=== PATIENT | male | born 1985 | race Caucasian/White ===

== ENCOUNTER 2017-07-08 04:35 | Emergency (ER) | payer OTHER ==
[2017-07-08] MEDS ORDERED: IBUPROFEN 600 MG TAB PO ONE (05:03)
--- NOTE | 2017-07-08 05:22 | EDPHY ---
H & P Stated Complaint: R foot infection, swelling Time Seen by Provider: 07/08/17 04:46 HPI/ROS: HPI The patient presents with right foot redness and swelling which has been present for the last 1 day. He went skiing 2 days ago and got a blister on his medial heel. He then noticed increasing redness and swelling of his heel which has gotten progressively worse. This is associated with a throbbing pain which is moderate in severity. He felt subjective chills though did not have a fever. He has not had any nausea or vomiting. He has no prior history of skin or soft tissue infection. REVIEW OF SYSTEMS Constitutional: No fever, no chills. Eyes: No discharge. ENT: No sore throat. Cardiovascular: No chest pain, no palpitations. Respiratory: No cough, no shortness of breath. Gastrointestinal: No abdominal pain, no vomiting. Genitourinary: No hematuria. Musculoskeletal: No back pain. Skin: No rashes. Neurological: No headache. PMHx: Healthy Soc Hx: Lives locally PHYSICAL General Appearance: Alert, no distress Eyes: Pupils equal and round no pallor or injection ENT, Mouth: Mucous membranes moist Respiratory: Breathing comfortably Neurological: A&O, moves all extremities Skin: Warm and dry, no rashes Musculoskeletal: Neck is supple non tender Extremities: Right medial heel with 2 cm open bullae with surrounding erythema , warmth, tenderness with no areas of fluctuance, there is lymphangitic streaking which extends to the mid thigh. Psychiatric: Patient is oriented X 3, there is no agitation Source: Patient Exam Limitations: No limitations - Personal History Current Tetanus/Diphtheria Vaccine: Unsure Current Tetanus Diphtheria and Acellular Pertussis (TDAP): Unsure - Medical/Surgical History Hx Asthma: No Hx Chronic Respiratory Disease: No Hx Diabetes: No Hx Cardiac Disease: No Hx Renal Disease: No Hx Cirrhosis: No Hx Alcoholism: No Hx HIV/AIDS: No Hx Splenectomy or Spleen Trauma: No Other PMH: denies - Social History Smoking Status: Never smoked Constitutional: Initial Vital Signs Temperature (C) 36.9 C 07/08/17 04:37 Heart Rate 95 07/08/17 04:37 Respiratory Rate 16 07/08/17 04:37 Blood Pressure 131/81 H 07/08/17 04:37 O2 Sat (%) 94 07/08/17 04:37 O2 Delivery Mode Room Air Allergies/Adverse Reactions: No Known Allergies Allergy (Unverified 07/08/17 04:39) Home Medications: Medication Instructions Recorded Clindamycin 450 mg PO Q6H 10 Days cap 07/08/17 Medical Decision Making Differential Diagnosis: This is a 32-year-old male who presents with right foot redness, warmth, edema which has been present for the last 1 day. His symptoms began as a blister on his heel and then spread. On exam, he a has normal vital signs. He does have signs of what appears to be cellulitis, abscess is less likely given no areas of fluctuance. He does have lymphangitic streaking which extends his mid thigh. Because of this I do recommend IV antibiotics. He has no systemic signs of illness. We will have him return tomorrow if he is not improved with p. O. Antibiotics. He is in agreement with this plan. - Data Points Medications Given: Discontinued Medications Ibuprofen (Motrin) 600 mg PO EDNOW ONE Stop: 07/08/17 05:04 Last Admin: 07/08/17 05:05 Dose: 600 mg Departure - Departure Disposition: Home, Routine, Self-Care Clinical Impression: Cellulitis of foot Condition: Good Instructions: Cellulitis (ED) Additional Instructions: Please keep your foot elevated at all times above your heart. You should take the antibiotic as prescribed. You can use ice packs as needed for pain. You can also take ibuprofen 400 mg with acetaminophen 650 mg. You should return to the emergency department if you develop a fever, worsening redness, swelling or pain. In this case he will need more IV antibiotics and may need to be admitted to the hospital. Referrals: Isha Vasquez DO [Doctor of Osteopathy] - As per Instructions
[2017-07-08 05:48] LABS: PLATELET COUNT 171 10^3/uL (150-400)
[2017-07-08 05:53] VITALS: BP 128/78
[2017-07-08] MEDS ORDERED: CLINDAMYCIN 150MG PREPACK#6 BTL TAKEHOME ONE (06:14)
== END 2017-07-08 06:35 | disposition home or self-care (01) ==
DX: L03.115 Cellulitis of right lower limb (principal)
CPT/HCPCS: 96374; J0690

== ENCOUNTER → 2017-10-29 | Outpatient (CLI) | payer OTHER | LOC: BMCIMAGING 08:53 | PROVIDERS: ATTEND Physician Assistant | DX: M25.562 Pain in left knee (principal) ==